=== PATIENT | female | born 1990 | race Caucasian/White ===

== ENCOUNTER 2016-12-08 01:34 | Inpatient (IN) | payer OTHER ==
[~2016-12-08] VITALS: Ht 157.5 cm; Wt 55.7 kg
[2016-12-08 02:00] VITALS: BP 120/74; PULSE 86; RESP 17; TEMP 97.5; O2SAT 99
[2016-12-08] MEDS ORDERED: LORazepam 2 MG/ML VIAL IM PRN (02:15)
[2016-12-08] MEDS ORDERED: BENZTROPINE MESYLATE 1 MG TAB PO PRN (02:15)
[2016-12-08] MEDS ORDERED: diphenhydrAMINE HCL 50 MG/ML VIAL - HS PRN IM (02:15)
[2016-12-08] MEDS ORDERED: MAGNESIUM HYDROXIDE SUSP 30 ML CUP PO PRN (02:15)
[2016-12-08] MEDS ORDERED: ALUMINUM/MAGNESIUM/SIMETH 30 ML CUP PO PRN (02:15)
[2016-12-08] MEDS ORDERED: BENZTROPINE MESYLATE 2 MG/2 ML VIAL IM PRN (02:15)
[2016-12-08] MEDS: LORazepam 1 MG TAB PO PRN ×3 (02:21→21:29)
[2016-12-08] MEDS: diphenhydrAMINE HCL 50 MG CAP - HS PRN PO (02:21)
[2016-12-08 06:09] VITALS: BP 122/68; PULSE 72; RESP 16; TEMP 97.9; O2SAT 98
[2016-12-08] MEDS: NICOTINE 21 MG/24 HR PATCH T-DERMAL SCH (09:00)
[2016-12-08] MEDS ORDERED: PILL SPLITTER OTHER PRN (12:45)
[2016-12-08] MEDS: LURASIDONE 40 MG TAB PO SCH (13:36)
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
[2016-12-08 19:19] VITALS: BP 118/63; PULSE 89; RESP 16; TEMP 98.7; O2SAT 100
[2016-12-08] MEDS: REMOVE OLD NICOTINE PATCH T-DERMAL SCH (21:00)
[2016-12-09] MEDS: diphenhydrAMINE HCL 50 MG CAP - HS PRN PO (00:59)
[2016-12-09 05:19] VITALS: BP 99/59; PULSE 69; RESP 18; TEMP 98.2; O2SAT 98
[2016-12-09] MEDS: LURASIDONE 40 MG TAB PO SCH (09:00)
[2016-12-09] MEDS: NICOTINE 21 MG/24 HR PATCH T-DERMAL SCH (09:00)
[2016-12-09] MEDS: LORazepam 1 MG TAB PO PRN ×3 (09:19→23:47)
[2016-12-09 09:27] LABS: AUTOMATED NEUTROPHIL # 2.4 TH/MM3 (1.8-7.7); BASOPHIL % 0.5 % (0.0-2.0); EOSINOPHIL # 0.1 TH/MM3 (0-0.4); EOSINOPHIL % 1.4 % (0.0-4.0); HEMATOCRIT 41.7 % (35.0-46.0); LYMPHOCYTE # 3.6 TH/MM3 (1.0-4.8); MEAN CELL VOLUME 91.2 FL (80.0-100.0); MEAN CORPUSCULAR HEMOGLOBIN 30.4 PG (27.0-34.0); MEAN CORPUSCULAR HGB CONC 33.3 % (32.0-36.0); MONO % 7.5 % (0.0-8.0); NEUT % 36.6 % (16.0-70.0); PLATELET COUNT 152 TH/MM3 (150-450); RED BLOOD COUNT 4.57 MIL/MM3 (4.00-5.30); RED CELL DISTRIBUTION WIDTH 12.3 % (11.6-17.2); WHITE BLOOD COUNT 6.7 TH/MM3 (4.0-11.0)
[2016-12-09 09:29] LABS: HEMO FLAGS AUTO DIFF
[2016-12-09 09:43] LABS: ANION GAP 7 MEQ/L (5-15); AST (GOT) 22 U/L (15-37); BICARBONATE 25.4 MEQ/L (21.0-32.0); BLOOD UREA NITROGEN 18 MG/DL (7-18); CHLORIDE 104 MEQ/L (98-107); GLOMERULAR FILTRATION RATE 102 ML/MIN (>89); POTASSIUM 3.7 MEQ/L (3.5-5.1); SODIUM (NA) 136 MEQ/L (136-145)
[2016-12-09 09:45] LABS: ALT (GPT) 34 U/L (10-53)
[2016-12-09 09:55] LABS: ALKALINE PHOSPHATASE 63 U/L (45-117); HDL CHOLESTEROL 42.2 MG/DL (40.0-60.0); INDIRECT BILIRUBIN 0.4 MG/DL (0.0-0.8); LDL CHOLESTEROL 150 MG/DL (0-99); TOTAL BILIRUBIN ADULT 0.6 MG/DL (0.2-1.0)
[2016-12-09 11:07] LABS: PLATELET ESTIMATE SMEAR NORMAL (NORMAL); PLATELET MORPHOLOGY ENLARGED (NORMAL); SCAN/DIFF AUTO DIFF CONFIRMED
--- NOTE | 2016-12-09 12:51 | PD.CONS ---
HPI Service [facility] Consult Requested By Dutch Martinez M.D. Reason for Consult Medical management Primary Care Physician No Primary Care Physician Diagnoses: History of Present Illness Written by Felix Lr PA-C, acting as scribe for Dr. Renetta Murphy on 12/09/16 at 12:51. Ms. Loera is 26 yo with history of untreated schizophrenia, borderline disorder , and migraine headaches. Per the medical record, on 12/09/16 pt reportedly called EMS as she was having suicidal ideation. Pt was subsequently brought to [facility], evaluated in the ED and placed under the Reilly act. At time of current evaluation she endorsed dizziness, poor sleep, and decreased appetite. She denied fever, chills, body aches, NVD, change in bowel and/or bladder habits. She reportedly smokes one cigarette per week since the age of 18. She reported near daily marijuana usage, with last use reported to be two weeks ago. A 10 pt ROS was completed and, except as noted above, was negative. Review of Systems Except as stated in HPI: all other systems reviewed are Neg Past Family Social History Allergies: Coded Allergies: Ibuprofen (Verified Allergy, Mild, 12/08/16) hives Past Medical History Bipolar disorder Borderline Personality disorder Migraine headaches. Past Surgical History Pt denied surgical history. Reported Medications Pt denied taking medication at home. Active Ordered Medications Current Medications Medications (Trade) Dose Ordered Sig/Nat Route Start Time Stop Time Status Last Admin (Ativan) 1 mg Q6H PRN PO 12/08/16 02:15 12/09/16 09:19 (Ativan Inj) 1 mg Q6H PRN IM 12/08/16 02:15 (Cogentin) 1 mg Q12H PRN PO 12/08/16 02:15 (Cogentin Inj) 1 mg Q12H PRN IM 12/08/16 02:15 (Benadryl) 50 mg HS PRN PO 12/08/16 02:15 12/09/16 00:59 (Benadryl Inj) 50 mg HS PRN IM 12/08/16 02:15 (Tylenol) 650 mg Q4H PRN PO 12/08/16 02:15 (Milk Of Magnesia Liq) 30 ml DAILY PRN PO 12/08/16 02:15 (Mag-Al Plus Susp Liq) 30 ml Q6H PRN PO 12/08/16 02:15 (Habitrol 21 Mg Patch.24 Hr) 1 patch DAILY T-DERMAL 12/08/16 09:00 Miscellaneous Information 1 HS T-DERMAL 12/08/16 21:00 (Latuda) 20 mg DAILY PO 12/08/16 12:45 12/09/16 09:00 (Pill Splitter) 1 ea UNSCH PRN OTHER 12/08/16 12:45 Family History Pt reported "all" females in her family have substance abuse history and depression. Social History Nicotine use: 1 cigarette per week since age 18. Marijuana use endorsed: near daily usage, last use was reported to be two weeks ago. Alcohol use was denied. Physical Exam Vital Signs Vital Signs Date Time Temp Pulse Resp B/P Pulse Ox O2 Delivery O2 Flow Rate FiO2 12/09/16 05:19 98.2 69 18 99/59 98 12/08/16 19:19 98.7 89 16 118/63 100 Physical Exam GENERAL: This is a well-nourished, well-developed patient, in no apparent distress. SKIN: No rashes, ecchymoses or lesions. Cool and dry. HEAD: Atraumatic. Normocephalic. No temporal or scalp tenderness. EYES: Pupils equal round and reactive. Extraocular motions intact. No scleral icterus. No injection or drainage. ENT: Nose without bleeding, purulent drainage or septal hematoma. Throat without erythema, tonsillar hypertrophy or exudate. Uvula midline. Airway patent. NECK: Trachea midline. No JVD or lymphadenopathy. Supple, nontender, no meningeal signs. CARDIOVASCULAR: Regular rate and rhythm without murmurs, gallops, or rubs. RESPIRATORY: Clear to auscultation. Breath sounds equal bilaterally. No wheezes , rales, or rhonchi. GASTROINTESTINAL: Abdomen soft, non-tender, nondistended. No hepato-splenomegaly , or palpable masses. No guarding. MUSCULOSKELETAL: Extremities without clubbing, cyanosis, or edema. No joint tenderness, effusion, or edema noted. No calf tenderness. Negative Homans sign bilaterally. NEUROLOGICAL: Awake and alert. Cranial nerves II through XII intact. Motor and sensory grossly within normal limits. Five out of 5 muscle strength in all muscle groups. Normal speech. Laboratory Laboratory Tests Test 12/09/16 08:59 White Blood Count 6.7 Red Blood Count 4.57 Hemoglobin 13.9 Hematocrit 41.7 Mean Corpuscular Volume 91.2 Mean Corpuscular Hemoglobin 30.4 Mean Corpuscular Hemoglobin 33.3 Concent Red Cell Distribution Width 12.3 Platelet Count 152 Mean Platelet Volume 12.3 Neutrophils (%) (Auto) 36.6 Lymphocytes (%) (Auto) 54.0 Monocytes (%) (Auto) 7.5 Eosinophils (%) (Auto) 1.4 Basophils (%) (Auto) 0.5 Neutrophils # (Auto) 2.4 Lymphocytes # (Auto) 3.6 Monocytes # (Auto) 0.5 Eosinophils # (Auto) 0.1 Basophils # (Auto) 0.0 CBC Comment AUTO DIFF Differential Comment AUTO DIFF CONFIRMED Platelet Estimate NORMAL Platelet Morphology Comment ENLARGED Sodium Level 136 Potassium Level 3.7 Chloride Level 104 Carbon Dioxide Level 25.4 Anion Gap 7 Blood Urea Nitrogen 18 Creatinine 0.70 Estimat Glomerular Filtration 102 Rate Random Glucose 87 Calcium Level 9.0 Total Bilirubin 0.6 Direct Bilirubin 0.2 Indirect Bilirubin 0.4 Aspartate Amino Transf 22 (AST/SGOT) Alanine Aminotransferase 34 (ALT/SGPT) Alkaline Phosphatase 63 Total Protein 8.3 Albumin 4.4 Triglycerides Level 67 Cholesterol Level 206 LDL Cholesterol 150 HDL Cholesterol 42.2 Cholesterol/HDL Ratio 4.88 Thyroid Stimulating Hormone 1.110 3rd Gen Result Diagram: 12/09/16 0859 12/09/16 0859 Assessment and Plan Assessment and Plan Ms. Loera is 26 yo with history of untreated schizophrenia, borderline disorder , and migraine headaches. Per the medical record, on 12/09/16 pt reportedly called EMS as she was having suicidal ideation. Pt was subsequently brought to [facility], evaluated in the ED and placed under the Reilly act. Bipolar disorder, depressed. -Treatment per Psychiatry. Hyperlipidemia - Lipitor 20 mg po q hs Pt is medically stable. Hospitalist team will sign off at this time. Please reconsult should any future issues arise. This note was transcribed by cece Lr PA-C. I, Dr. Renea Murphy personally performed the history, physical exam, and medical decision making; and confirmed the accuracy of the information in the transcribed note. Authenticated by Dr. Renea Murphy on 12/09/16 at 12:51. This note was transcribed by cece Lr PA-C. I, Dr. Renea Murphy personally performed the history, physical exam, and medical decision making; and confirmed the accuracy of the information in the transcribed note. Authenticated by Dr. Renea Murphy on 12/09/16 at 12:51. Discussed Condition With Patient Felix Lr Jr. Dec 09, 2016 12:51 Renea Murphy MD Dec 09, 2016 13:50
--- NOTE | 2016-12-09 14:57 | EKG ---
Date Performed: 12/08/2016 Time Performed: 21:19:42 PTAGE: 26 years EKG: Sinus rhythm NORMAL ECG NO PREVIOUS TRACING DOCTOR: Quentin Puente Interpretating Date/Time 12/09/2016 14:55:41
[2016-12-09 18:28] VITALS: BP 102/69; PULSE 97; RESP 17; TEMP 98.3; O2SAT 98
[2016-12-09] MEDS: ATORVASTATIN 20 MG TAB PO SCH ×2 (21:00→22:33)
[2016-12-09] MEDS: REMOVE OLD NICOTINE PATCH T-DERMAL SCH (21:00)
[2016-12-09] MEDS ORDERED: traZODone HCL 50 MG TAB PO PRN (22:15)
--- NOTE | 2016-12-09 22:16 | HHI.PYPN ---
Subjective Remarks Pt seen and discussed with staff. Staff report that pt was agitated and had a meltdown early this morning. Pt c/o of depression and poor sleep. She denies medications side effects. No SI/HI Objective Alert: Yes [place]: Person, Place, Date, Situation Mood: Depressed Affect: Flat Memory Intact: Immediate, Recent, Remote Hallucinations: Other (none) Delusions: No Delusion Type: Other (none) Suicidal: Ideation (denies) Homicidal: Ideation (denies) Insight/Judgment poor Labs Test 12/09/16 08:59 White Blood Count 6.7 TH/MM3 Red Blood Count 4.57 MIL/MM3 Hemoglobin 13.9 GM/DL Hematocrit 41.7 % Mean Corpuscular Volume 91.2 FL Mean Corpuscular Hemoglobin 30.4 PG Mean Corpuscular Hemoglobin 33.3 % Concent Red Cell Distribution Width 12.3 % Platelet Count 152 TH/MM3 Mean Platelet Volume 12.3 FL Neutrophils (%) (Auto) 36.6 % Lymphocytes (%) (Auto) 54.0 % Monocytes (%) (Auto) 7.5 % Eosinophils (%) (Auto) 1.4 % Basophils (%) (Auto) 0.5 % Neutrophils # (Auto) 2.4 TH/MM3 Lymphocytes # (Auto) 3.6 TH/MM3 Monocytes # (Auto) 0.5 TH/MM3 Eosinophils # (Auto) 0.1 TH/MM3 Basophils # (Auto) 0.0 TH/MM3 CBC Comment AUTO DIFF Differential Comment AUTO DIFF CONFIRMED Platelet Estimate NORMAL Platelet Morphology Comment ENLARGED Sodium Level 136 MEQ/L Potassium Level 3.7 MEQ/L Chloride Level 104 MEQ/L Carbon Dioxide Level 25.4 MEQ/L Anion Gap 7 MEQ/L Blood Urea Nitrogen 18 MG/DL Creatinine 0.70 MG/DL Estimat Glomerular Filtration 102 ML/MIN Rate Random Glucose 87 MG/DL Calcium Level 9.0 MG/DL Total Bilirubin 0.6 MG/DL Direct Bilirubin 0.2 MG/DL Indirect Bilirubin 0.4 MG/DL Aspartate Amino Transf 22 U/L (AST/SGOT) Alanine Aminotransferase 34 U/L (ALT/SGPT) Alkaline Phosphatase 63 U/L Total Protein 8.3 GM/DL Albumin 4.4 GM/DL Triglycerides Level 67 MG/DL Cholesterol Level 206 MG/DL LDL Cholesterol 150 MG/DL HDL Cholesterol 42.2 MG/DL Cholesterol/HDL Ratio 4.88 RATIO Thyroid Stimulating Hormone 1.110 uIU/ML 3rd Gen Vitals/IOs Vital Signs Date Time Temp Pulse Resp B/P Pulse Ox O2 Delivery O2 Flow Rate FiO2 12/09/16 18:28 98.3 97 17 102/69 98 Assessment & Plan Problem List: (1) Bipolar disorder, current episode depressed, severe, without psychotic features ICD Code: F31.4 Assessment & Plan Continue latuda titration. Trazodone prn sleep. Estimated LOS: days Justification for Cont. Inpt. medication changes requiring monitoring Pallavi Chappell MD Dec 09, 2016 22:16
[2016-12-10 06:23] VITALS: BP 95/58; PULSE 82; RESP 18; TEMP 97.7; O2SAT 98
[2016-12-10] MEDS: LURASIDONE 40 MG TAB PO SCH (07:59)
[2016-12-10] MEDS: NICOTINE 21 MG/24 HR PATCH T-DERMAL SCH (08:00)
[2016-12-10 10:00] LABS: HEMOGLOBIN A1a 0.9 %; HEMOGLOBIN A1b 0.7 %; HEMOGLOBIN Ao 86.5 %; HEMOGLOBIN F 0.9 %; HEMOGLOBIN LA1C 1.9 %; HEMOGLOBIN P3 3.5 %
--- NOTE | 2016-12-10 14:10 | HHI.PYPN ---
Subjective Remarks Pt seen and discussed doctors hospital staff. She has been pleasant and has been in better behavioral control. No meltdowns or outbursts today. She has been compliant with medications and denies side effects. She reports that today she has felt some improvement in mood and has not had a crying spell today. "That's what was happening before I came here. I was crying all day." She reports that she tolerated trazodone without side effects but it was not effective fully for sleep. No SI/HI today. Pt reports that she does not currently have a psychiatric provider for outpatient care. Objective Alert: Yes [place]: Person, Place, Date, Situation Mood: Depressed Affect: Restricted Memory Intact: Immediate, Recent, Remote Hallucinations: Other (none) Delusions: No Delusion Type: Other (none) Suicidal: Ideation (denies) Homicidal: Ideation (denies) Insight/Judgment fair Vitals/IOs Vital Signs Date Time Temp Pulse Resp B/P Pulse Ox O2 Delivery O2 Flow Rate FiO2 12/10/16 06:23 97.7 82 18 95/58 98 Assessment & Plan Problem List: (1) Bipolar disorder, current episode depressed, severe, without psychotic features ICD Code: F31.4 Assessment & Plan Pt improving. Continue current tx plan. Increase trazodone for sleep. Pt will need referral for out patient care prior to discharge. Estimated LOS: days Justification for Cont. Inpt. risk of decompensation. Pallavi Chappell MD Dec 10, 2016 14:10
[2016-12-10] MEDS ORDERED: traZODone HCL 50 MG TAB PO PRN (16:00)
[2016-12-10 18:28] VITALS: BP 119/58; PULSE 88; RESP 18; TEMP 98.5; O2SAT 100
[2016-12-10] MEDS: REMOVE OLD NICOTINE PATCH T-DERMAL SCH (21:00)
[2016-12-10] MEDS: ATORVASTATIN 20 MG TAB PO SCH (21:49)
[2016-12-10] MEDS: LORazepam 1 MG TAB PO PRN (23:00)
[2016-12-11] MEDS: diphenhydrAMINE HCL 50 MG CAP - HS PRN PO (03:09)
[2016-12-11 06:00] VITALS: BP 97/59; PULSE 60; RESP 16; TEMP 97.5; O2SAT 100
[2016-12-11] MEDS: LURASIDONE 40 MG TAB PO SCH ×2 (08:41→11:29)
[2016-12-11] MEDS: NICOTINE 21 MG/24 HR PATCH T-DERMAL SCH (08:42)
[2016-12-11] MEDS: LORazepam 1 MG TAB PO PRN ×2 (10:10→21:42)
[2016-12-11] MEDS: ACETAMINOPHEN 325 MG TAB PO PRN (10:10)
--- NOTE | 2016-12-11 16:41 | HHI.PYPN ---
Subjective Remarks Patient seen for follow up, chart review. As per nursing report in discussion , patient had poor sleep last evening was having racing thoughts this morning and and tearful. Patient found in hospital room sitting on hospital bed found tearful and crying states she has solid night had difficulty sleeping. Patient states that over the weekend she was doing much better did not have any crying episodes was happier with decreased negative thoughts with improved appetite. Patient states that she had not had any suicidal ideation since admission. Patient reports that he spoke to her mother working on the weekend and was supportive. Review of Systems Except as stated in HPI: all other systems reviewed are Neg Neurologic: COMPLAINS OF: Headache Objective Alert: Yes [place]: Person, Place, Date, Situation Mood: Depressed Affect: Other (tearful and dysthymic) Memory Intact: Immediate, Recent, Remote Hallucinations: Other (none) Delusions: No Delusion Type: Other (none) Suicidal: Ideation (denies) Homicidal: Ideation (denies) Insight/Judgment Fair insight, impulse control and judgment Remarks Patient appears stated age, in hospital [facility], calm and cooperative in interview but noted to be tearful throughout interview today, fair grooming and hygiene, fair eye contact, speech normal rate tone and prosody. Thought process linear, organized, thought content denies SI, HI, AVH or delusions. Vitals/IOs Vital Signs Date Time Temp Pulse Resp B/P Pulse Ox O2 Delivery O2 Flow Rate FiO2 12/11/16 06:00 97.5 60 16 97/59 100 Intake and Output 12/10/16 12/10/16 12/10/16 07:59 15:59 23:59 Intake Total 240 ml Balance 240 ml Assessment & Plan Problem List: (1) Bipolar disorder, current episode depressed, severe, without psychotic features ICD Code: F31.4 Assessment & Plan Patient is at this time, continues to endorse some depressive symptoms, continues with labile mood, episodes of crying spells, but denies suicidality at this time. Increase the resident to 40 mg by mouth daily for stabilization. Start hydroxyzine 50 mg at bedtime for insomnia and anxiety. Monitor for medication response and adverse drug reactions. Supportive psychotherapy provided. Continue to encourage good hygiene and participation in groups and activities while the unit. Discharge planning in progress Justification for Cont. Inpt. Patient at risk for further decompensation if it lower level of care Discharge Planning In progress Juan,Dutch Terry MD Dec 11, 2016 16:41
[2016-12-11 18:20] VITALS: BP 119/72; PULSE 114; RESP 16; TEMP 98.5; O2SAT 100
[2016-12-11] MEDS: hydrOXYzine HCL 50 MG TAB PO SCH (20:57)
[2016-12-11] MEDS: REMOVE OLD NICOTINE PATCH T-DERMAL SCH (20:57)
[2016-12-11] MEDS: ATORVASTATIN 20 MG TAB PO SCH (20:57)
[2016-12-12] MEDS: LORazepam 1 MG TAB PO PRN ×3 (04:34→21:04)
[2016-12-12 05:48] VITALS: BP 103/65; PULSE 82; RESP 16; TEMP 98.1; O2SAT 98
[2016-12-12] MEDS: NICOTINE 21 MG/24 HR PATCH T-DERMAL SCH (09:00)
[2016-12-12] MEDS: LURASIDONE 40 MG TAB PO SCH (11:57)
[2016-12-12] MEDS: ACETAMINOPHEN 325 MG TAB PO PRN (13:12)
[2016-12-12 15:19] VITALS: BP 97/58; PULSE 18; RESP 18; TEMP 98.4; O2SAT 99
--- NOTE | 2016-12-12 17:35 | HHI.PYPN ---
Subjective Remarks Patient seen for follow-up, chart review. Patient found interacting with other patients on the unit noted to be in good spirits. Patient states that she has been feeling more positive with decreased energy but continues to feel somewhat anxious about having difficulty sleeping but reports having slept well last night. Patient states that her mood as "good" and had during activities and group she spoke about starting school again she patient was excited about. She also reports increased appetite and denies any suicidal ideations since admission. Patient states he spoke with family on the phone until supported by them. Patient continues to tolerate medications well and denies any adverse drug reactions. Patient at this time denies SI, HI, AVH or delusions. Review of Systems Except as stated in HPI: all other systems reviewed are Neg Objective Alert: Yes [place]: Person, Place, Date, Situation Mood: Calm Affect: Appropriate Memory Intact: Immediate, Recent, Remote Hallucinations: Other (none) Delusions: No Delusion Type: Other (none) Suicidal: Ideation (denies) Homicidal: Ideation (denies) Insight/Judgment Fair insight, impulse control and judgment Vitals/IOs Vital Signs Date Time Temp Pulse Resp B/P Pulse Ox O2 Delivery O2 Flow Rate FiO2 12/12/16 15:19 98.4 18 18 97/58 99 Assessment & Plan Problem List: (1) Bipolar disorder, current episode depressed, severe, without psychotic features ICD Code: F31.4 Assessment & Plan Patient continues to be noted to have improvement of mood, denies any suicidal ideations. Patient tolerating medication regimen well will continue current treatment regimen and monitor for medication response adverse drug reactions. Supportive psychotherapy provided. Discharge planning in progress Justification for Cont. Inpt. Patient was referred decompensation if at lower level of care Discharge Planning In progress Dutch Martinez MD Dec 12, 2016 17:35
[2016-12-12] MEDS: REMOVE OLD NICOTINE PATCH T-DERMAL SCH (21:00)
[2016-12-12] MEDS: ATORVASTATIN 20 MG TAB PO SCH (21:04)
[2016-12-12] MEDS: hydrOXYzine HCL 50 MG TAB PO SCH (21:04)
[2016-12-13 05:11] VITALS: BP 108/63; PULSE 65; RESP 14; TEMP 98; O2SAT 100
[2016-12-13] MEDS: NICOTINE 21 MG/24 HR PATCH T-DERMAL SCH (09:00)
[2016-12-13] MEDS: LURASIDONE 40 MG TAB PO SCH (11:00)
--- NOTE | 2016-12-13 14:06 | HHI.PYPN ---
Subjective Remarks Patient seen for follow-up, chart review. After discussion with nursing staff patient has been compliant with medication no behavioral issues. Patient was able to engage in interview today was noted to be calm and cooperative. Patient stated that she been feeling "good" and reports feeling "a lot better". She states that since she's been on the medication she feels her mood has been more stable, now being more motivated about her goals upon discharge stated she wants to return back to school. Patient denies any depressive symptoms at this time reports sleeping well, denies any suicidal ideations. She she mentions that she spoke with her mother with a phone which went well and that her mother is planning to come visit her very soon. Patient states that she plans to continuing her structure at home upon discharge as well as continue treatment. Outpatient follow-up for noted of care. Patient this time denies SI, HI, AVH or delusions. Review of Systems Except as stated in HPI: all other systems reviewed are Neg Objective Alert: Yes [place]: Person, Place, Date, Situation Mood: Calm Affect: Appropriate Memory Intact: Immediate, Recent, Remote Hallucinations: Other (none) Delusions: No Delusion Type: Other (none) Suicidal: Ideation (denies) Homicidal: Ideation (denies) Insight/Judgment Fair insight, impulse control and judgment Vitals/IOs Vital Signs Date Time Temp Pulse Resp B/P Pulse Ox O2 Delivery O2 Flow Rate FiO2 12/13/16 05:11 98.0 65 14 108/63 100 Assessment & Plan Problem List: (1) Bipolar disorder, current episode depressed, severe, without psychotic features ICD Code: F31.4 Assessment & Plan Patient at this time denies any depressive symptoms, denies any suicidal ideations, appears responding well to treatment. Patient will have mother come visit with her tomorrow which at that time team will speak with the mother for her perspective on how her the patient is doing. Patient to continue current treatment regimen, multiple medication response adverse drug reactions. Supportive psychotherapy provided. Discharge planning in progress. Justification for Cont. Inpt. Patient at risk for further decompensation if it lower level of care Discharge Planning In progress Dutch Martinez MD Dec 13, 2016 14:06
[2016-12-13] MEDS ORDERED: LURASIDONE 40 MG TAB PO SCH (18:00)
[2016-12-13] MEDS: hydrOXYzine HCL 50 MG TAB PO SCH (20:52)
[2016-12-13] MEDS: ATORVASTATIN 20 MG TAB PO SCH (20:53)
[2016-12-13] MEDS: REMOVE OLD NICOTINE PATCH T-DERMAL SCH (21:00)
[2016-12-14 05:28] VITALS: BP 99/75; PULSE 72; RESP 16; TEMP 98.1; O2SAT 100
[2016-12-14] MEDS: NICOTINE 21 MG/24 HR PATCH T-DERMAL SCH (09:00)
[2016-12-14] MEDS ORDERED: ATOR20TA15 PO (12:20)
[2016-12-14] MEDS ORDERED: HYDR50TA94 PO (12:20)
[2016-12-14] MEDS ORDERED: LURA40 PO (12:20)
--- NOTE | 2016-12-14 20:04 | HHI.DS ---
Psychiatry Discharge Summary Inpatient Psychiatric care?: Yes Advance Directive: No Reason Not Provided: Not intereste Mental Health AdvanceDirective: No Health Care Proxy: No Admission Admission Date Dec 08, 2016 at 01:34 Admission Diagnosis: (1) Bipolar disorder, current episode depressed, severe, without psychotic features ICD Code: F31.4 Brief History Patient is a 26-year-old woman, recently with one 3-year-old child in the custody of the ex-, unemployed, past psychiatric history of bipolar disorder, borderline personality disorder, THC use disorder, multiple psychiatric hospitalizations (last 4 years ago), 2 previous suicide attempts via overdose (last 19 years old), history of self-injurious behavior via cutting (last being yesterday), no current outpatient provider, no significant past medical history, was brought in by EMS activated by self for suicidal ideations at place of the [facility] for the same. Patient was transferred to the inpatient psychiatric unit for further evaluation and treatment patient was found lying in hospital bed, noted to be calm and cooperative in interview. Patient stated that she had called [facility] recently as she reported that having worsening depression characterized by increased crying episodes for the past few days, decreased sleep, difficulty despite taking Benadryl, decreased energy appetite and concentration, mood being up and down feeling helpless and hopeless along with irritability and suicidal ideations for the past couple of weeks which have increasing but had not had any intent or plan. Patient states that she recently lost her job and she had been missing more days at work due to current symptoms, reports that she recently finalized of her divorce and although she has joint custody sees a person only for 2 months when she last saw him during the summer and had left back to live with the ex- . Patient also reports having attempted to cut self superficially with a broken ceramic item but denied any intention to take her life. Patient states that she decided to call now 1 before she became impulsive and attempted to act on her suicidal ideations. Patient at this time reports feeling sad denies any SI or HI or AVH or at time of interview. Past psychiatric history: Previous psychiatric diagnoses of bipolar disorder, borderline personality disorder, previous psychiatric hospitalizations last being 4 years ago, 2 previous suicide attempt via overdose last being at 19 years old, history of self-injurious behavior via cutting last being yesterday and stated history of present illness, reports having previous psychiatry and therapist in the ER last in 2015. Previous medication trials include Saphris, clonazepam, Lexapro, sertraline, mirtazapine, and Topamax. Patient states that she last took Saphris, clonazepam, Topamax in September 2015. Family psychiatric history: Mom with substance abuse and depression, and with suicide attempts. Denies any completed suicides in the family. Substance use history: Tobacco use one cigarette per week, denies any alcohol or illicit drug use aside from marijuana use which she last used 2 weeks ago. She denies any detox or rehabilitation programs in the past. Past medical history: Patient denies but reports having contraceptive implant in her arm for the past 3 years and feels that it may be due for to change. Allergies: Other profane Legal history she denies Social history: Recently , lives with boyfriend and brother, recently unemployed, supported by her friend and brother, living in [facility] for the past year, has one 3-year-old son in the custody of her ex- living in [place] , highest education is GED, some college classes. Tobacco Use In Past 30 Days: No Tobacco Past 30 Days Alcohol Use: Never Hospital Course Patient is a 26-year-old woman, recently with one 3-year-old child in the custody of the ex-, unemployed, past psychiatric history of bipolar disorder, borderline personality disorder, THC use disorder, multiple psychiatric hospitalizations (last 4 years ago), 2 previous suicide attempts via overdose (last 19 years old), history of self-injurious behavior via cutting (last being yesterday), no current outpatient provider, no significant past medical history, was brought in by EMS activated by self for suicidal ideations at place of the [facility] for the same. Patient was transferred to the inpatient psychiatric unit for further evaluation and treatment. Patient upon initial evaluation had endorsed significant depressive symptoms which had been worsening over the course of several months in the context of multiple psychosocial stressors and medication nonadherence. Patient was started on trazodone 20 mg by mouth for mood stabilization which was then titrated to 40 mg by mouth daily. Patient began to show significant improvement in mood, denied any suicidality was noted to be more engaging with staff, participating in group therapy and activities and caring for self while on the unit. During hospitalization patient has support from family members would come visit or speak to her over the phone. Upon discharge patient reported feeling good, denies having any depressed symptoms at this time denies any suicidal ideations. Patient states feeling motivated to return back to her life, complete personal goals, adhered to outpatient treatment and medication regimen. Patient psychiatric stable to return to the community. Patient was provided recommendations to continue current treatment and adhere to outpatient follow-up for continuity of care. Patient advised to call 911 or return to emergency department in case of an emergency. Patient agrees with plan. Results Blood Pressure 99 / 75 Vital Signs Date Time Temp Pulse Resp B/P Pulse Ox O2 Delivery O2 Flow Rate FiO2 12/14/16 05:28 98.1 72 16 99/75 100 Laboratory Results Test 12/09/16 08:59 Hemoglobin A1c 5.0 % (4.3-6.0) Triglycerides Level 67 MG/DL (42-150) Cholesterol Level 206 MG/DL (120-200) LDL Cholesterol 150 MG/DL (0-99) HDL Cholesterol 42.2 MG/DL (40.0-60.0) Summary of Procedures None Pending results at discharge: No Medications # of Antipsychotic meds at D/C: 1 Approp Antipsych med options 1 - Minimum of three failed multiple trials of monotherapy. 2 - Documented plan to taper to monotherapy due to previous use of multiple meds OR cross-taper in progress at D/C. 3 - Documentation of augmentation of Clozapine. 4 - Justification other than those listed in allowable values 1-3, document here : Discharge Discharge Date: Dec 14, 2016 Discharge Diagnosis: (1) Bipolar disorder, current episode depressed, severe, without psychotic features Diagnosis: Principal ICD Code: F31.4 Mental Status Exam at Disch Patient appears stated age, found in [facility], fair hygiene and grooming , calm and cooperative interview, fair eye contact, speech normal rate tone and prosody, language fluid and spontaneous, mood "good", affect appropriate and euthymic, thought process linear, future oriented, thought content denies SI, HI , AVH or delusions. Insight impulse control and judgment are fair. Alert and oriented 3 Pt Condition on Discharge: Fair Discharge Disposition: Discharge Home Discharge Instructions Diet Instructions: As Tolerated, No Restrictions Activities you can perform: Regular-No Restrictions Scheduled Appointment: Chuy Mann Appointment Date: Dec 15, 2016 Appointment Time: 730 Discharge Time > 30 minutes Discharge/Advance Care Plan Health Problems: (1) Bipolar disorder, current episode depressed, severe, without psychotic features Goals to promote your health * To prevent worsening of your condition and complications * To maintain your health at the optimal level Directions to meet your goals Take your medications as prescribed Follow your dietary instruction Follow activity as directed Keep your appointments as scheduled Take your immunizations and boosters as scheduled If your symptoms worsen call your PCP, if no PCP go to Urgent Care Center or Emergency Room For 20/11 questions related to your inpatient stay or results of tests pending at discharge, please contact Dr. Dutch Martinez at Smoking is Dangerous to Your Health. Avoid second hand smoking Dutch Martinez MD Dec 14, 2016 20:04
== END 2016-12-14 15:25 | disposition home or self-care (01) | DRG 885 ==
LOC: H260 01:34
PROVIDERS: ADMIT Student in an Organized Health Care Education/Training Program; ATTEND Student in an Organized Health Care Education/Training Program
DX: F31.4 Bipolar disorder, current episode depressed, severe, without psychotic features (principal); R45.851 Suicidal ideations; F60.3 Borderline personality disorder; G43.909 Migraine, unspecified, not intractable, without status migrainosus; F12.90 Cannabis use, unspecified, uncomplicated; Z91.410 Personal history of adult physical and sexual abuse; F20.9 Schizophrenia, unspecified; F17.210 Nicotine dependence, cigarettes, uncomplicated; E78.5 Hyperlipidemia, unspecified
CPT/HCPCS: 80048; 80061; 80076; 83036; 84443; 85025; 93005; Q0163